=== PATIENT | male | born 1965 | race Caucasian/White ===

== ENCOUNTER 2019-08-22 09:06 | Emergency (ER) | payer BC, MEDICAID ==
[2019-08-22 09:30] VITALS: BP 133/97; PULSE 126
--- NOTE | 2019-08-22 09:32 | EDM.PDOC ---
ED HPI GENERAL MEDICAL PROBLEM - General Chief Complaint: Abdominal Pain Stated Complaint: LOWER STOMACH PAIN Time Seen by Provider: 08/22/19 09:21 Source of Information: Reports: Patient History Limitations: Reports: No Limitations - History of Present Illness INITIAL COMMENTS - FREE TEXT/NARRATIVE: This started four days ago with abdominal pain. Diarrhea started right away. The diarrhea right away was liquid and yellow and has continued to be. He has not really been nauseated or vomiting. He has been drinking a lot nolberto water but has not eaten anything since this started. He has not noted fever or chills. He has had problems sleeping as he is so uncomfortable. he has been drinking milk also. He has had about half a gallon in past two days. He denies any burning or heartburn. He has been drinking a lot of water and has urinating frequently. He has trouble starting the urine as he has pain in the suprapubic area. he presses on belly to urinate. The pain has not changed location and does not radiate. He has not been traveling anywhere in past month. He was working at the [employer] but has not worked since last Friday. They let him go due to illness. 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 This is an assisted living place. He did clean up a lot of poop and briefs, etc. He denies burning on urination. He had a similar problem within past year and was treated with some pills. 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: Other (see below) Lower Abdomen Pain Score (Numeric/FACES): 10 - Related Data Allergies Allergy/AdvReac Type Severity Reaction Status Date / Time No Known Allergies Allergy Verified 08/22/19 09:30 Home Meds: Home Meds Ciprofloxacin/Ciprofloxa HCl [Cipro Xr 500 mg Tablet] 500 mg PO BID #20 tbmp.24hr 08/22/19 [Rx] Tamsulosin [Tamsulosin 24 Hr] 0.4 mg PO DAILY 30 Days #30 cap.er 08/22/19 [Rx] Past Medical History - Past Health History Medical/Surgical History: Denies Medical/Surgical History Psychiatric History: Reports: Addiction, Anxiety, Depression Social & Family History - Tobacco Use Smoking Status *Q: Current Every Day Smoker Tobacco Use Within Last Twelve Months: Cigarettes Years of Tobacco use: 30 Smoking Cessation Information Provided To Patient: Yes ED ROS GENERAL - Review of Systems Review Of Systems: ROS reveals no pertinent complaints other than HPI. ED EXAM, GI/ABD - Physical Exam Exam: See Below Exam Limited By: No Limitations General Appearance: Alert, WD/WN, Anxious Eyes: Bilateral: Normal Appearance Ears: Normal External Exam, Normal Canal, Normal TMs Nose: Normal Inspection Throat/Mouth: Other (Throat erythematous; without tonsilar hypertrophy or exudate) Head: Atraumatic, Normocephalic Neck: Normal Inspection, Supple Respiratory/Chest: No Respiratory Distress, Lungs Clear, Normal Breath Sounds Cardiovascular: Regular Rate, Rhythm, No Edema, No JVD, No Murmur GI/Abdominal Exam: Normal Bowel Sounds, Distended, Guarding, Tender, Other ( Abdomen mildly distended lower abdomen: states pain is in suprapubic area. C/O pain to palpation of midepigastric area as well as lower abdomen both right and left quadrants.) (Male) Exam: Normal Inspection, Circumcised. No: Penile Lesions, Scrotal Swelling Rectal (Males) Exam: Normal Rectal Tone, BPH Back Exam: Full Range of Motion. No: CVA Tenderness (L), CVA Tenderness (R) Extremities: Normal Inspection, Normal Range of Motion, No Pedal Edema, Normal Capillary Refill Neurological: Alert, Oriented, CN II-XII Intact, Normal Cognition, Normal Gait Psychiatric: Anxious Skin Exam: Warm, Dry, Intact, Normal Color, No Rash Lymphatic: No Adenopathy Course - Vital Signs Text/Narrative:: After patient arrived he was anxious and restless; he was up to bathroom to void and would have tiny amount of stool. Voiding was approx 50 cc each time. He states that he has been drinking a large amount of fluids as he was afraid he would get dehydrated. CT of abdomen/pelvis showed very large bladder and so Gallegos was placed. 2200 ccs of pale urine drained within 10 minutes. Prostate exam revealed firm, tender prostate that was mildly enlarged. I calledord Urologist button cutter Dr. Atkinson. He advised followup with Urology to do cystoscopy and treat prostate. He suggested starting on CIpro and Flomax. Pt tolerated Gallegos placement. He was instructed regarding the catheter Last Recorded V/S: Last Vital Signs Temp 99.2 F 08/22/19 09:10 Pulse 126 H 08/22/19 09:10 Resp 16 08/22/19 09:10 BP 133/97 H 08/22/19 09:10 Pulse Ox 96 08/22/19 09:10 - Orders/Labs/Meds Orders: Active Orders 24 hr Category Date Time Status Gallegos Catheter Insertion [Insert Urinary Catheter] [OM. Care 08/22/19 11:15 Ordered PC] Q24H Urinary Catheter Assessment [RC] ASDIRECTED Care 08/22/19 11:04 Active CLOSTRIDIUM DIFFICILE TOX RFLX [MREF] Stat Lab 08/22/19 09:59 Ordered STOOL CULTURE [MREF] Stat Lab 08/22/19 09:59 Ordered Isolation [COMM] Stat Oth 08/22/19 10:02 Ordered Saline Lock Insert [OM.PC] Routine Oth 08/22/19 09:38 Ordered Labs: Laboratory Tests 08/22/19 08/22/19 08/22/19 Range/Units 09:10 09:50 09:50 WBC 11.3 H (4.0-10.0) x10^3/uL RBC 4.60 (4.5-6.0) x10^6/uL Hgb 13.6 L (14.0-18.0) g/dL Hct 37.5 L (40.0-52.0) % MCV 81.5 (78.0-93.0) fL MCH 29.6 (26.0-32.0) pg MCHC 36.3 H (32.0-36.0) g/dL RDW Coeff of Heriberto 13.8 (10.0-15.0) % Plt Count 218 (130-400) x10^3/uL Neut % (Auto) 82.0 H (50.0-80.0) % Lymph % (Auto) 10.3 L (25.0-50.0) % Todd % (Auto) 7.0 (2.0-11.0) % Eos % (Auto) 0.5 (0.0-4.0) % Baso % (Auto) 0.2 (0.2-1.2) % Sodium 136 (69-191) mmol/L Potassium 4.0 (1.5-9.9) mmol/L Chloride 96 L (54-184) mmol/L Carbon Dioxide 26 (21-32) mmol/L Anion Gap 18.0 (10-20) mmol/L BUN 13 (7-18) mg/dL Creatinine 0.8 (0.70-1.30) mg/dL Est Cr Clr Drug Dosing 98.20 mL/min Estimated GFR (MDRD) > 60 Glucose 119 H (74-106) mg/dL Calcium 9.2 (8.5-10.1) mg/dL Corrected Calcium 9.04 (8.5-10.1) mg/dL Total Bilirubin 0.9 (0.2-1.0) mg/dL AST 174 H (15-37) U/L ALT 114 H (16-63) U/L Alkaline Phosphatase 84 (46-116) U/L C-Reactive Protein < 0.2 (<=0.9) mg/dL Total Protein 7.3 (6.4-8.2) g/dL Albumin 4.2 (3.4-5.0) g/dL Globulin 3.1 Albumin/Globulin Ratio 1.35 Lipase 327 (73-393) U/L Urine Color Yellow (YELLOW) Urine Appearance Slightly cloudy H (CLEAR) Urine pH 6.5 (5.0-8.0) Ur Specific [place] <=1.005 Urine Protein Trace H (NEGATIVE) mg/dL Urine Glucose (UA) Negative (NEGATIVE) mg/dL Urine Ketones Negative (NEGATIVE) mg/dL Urine Occult Blood Moderate H (NEGATIVE) Urine Nitrite Negative (NEGATIVE) Urine Bilirubin Negative (NEGATIVE) Urine Urobilinogen 0.2 (0.2) EU/dL Ur Leukocyte Esterase Negative (NEGATIVE) Urine RBC 5-10 H (NOT SEEN) /HPF Urine WBC 0-5 (NOT SEEN) /HPF Ur Squamous Epith Cells Not seen (NEGATIVE) /HPF Urine Bacteria Rare (NEGATIVE) /HPF Urine Mucus Few H (NEGATIVE) /LPF Meds: Medications Discontinued Medications Generic Name Dose Route Start Last Admin Trade Name Freq PRN Reason Stop Dose Admin Ciprofloxacin 500 mg 08/22/19 12:30 08/22/19 12:38 Ciprofloxacin Hcl PO 08/22/19 12:31 500 mg ONETIME ONE Administration Fentanyl 50 mcg 08/22/19 09:46 08/22/19 12:38 Sublimaze IVPUSH 08/22/19 09:47 Not Given ONETIME ONE Iopamidol 100 ml 08/22/19 10:21 08/22/19 10:38 Isovue-300 (61%) IVPUSH 08/22/19 10:22 100 ml ONETIME ONE Administration Lorazepam 1 mg 08/22/19 09:58 08/22/19 10:08 Ativan IVPUSH 08/22/19 09:59 1 mg STAT ONE Administration Sodium Chloride 10 ml 08/22/19 09:38 Saline Flush FLUSH ASDIRECTED PRN Keep Vein Open Tamsulosin HCl 0.4 mg 08/22/19 12:33 08/22/19 12:38 Flomax PO 08/22/19 12:34 0.4 mg ONETIME ONE Administration - Re-Assessments/Exams Free Text/Narrative Re-Assessment/Exam: 08/22/19 13:57 His lower abdomen was less distended after Gallegos inserted. He verbalized decrease in his pain and pressure Departure - Departure Time of Disposition: 12:30 Disposition: Home, Self-Care 01 Condition: Good Clinical Impression: Prostatitis syndrome, Hydronephrosis due to obstruction of bladder Abdominal pain Qualifiers: Abdominal location: lower abdomen, unspecified Qualified Code(s): R10.30 - Lower abdominal pain, unspecified Diarrhea Qualifiers: Diarrhea type: functional diarrhea Qualified Code(s): K59.1 - Functional diarrhea - Discharge Information *PRESCRIPTION DRUG MONITORING PROGRAM REVIEWED*: Not Applicable *COPY OF PRESCRIPTION DRUG MONITORING REPORT IN PATIENT INO: Not Applicable Prescriptions: Ciprofloxacin/Ciprofloxa HCl [Cipro Xr 500 mg Tablet] 500 mg PO BID #20 tbmp.24hr Tamsulosin [Tamsulosin 24 Hr] 0.4 mg PO DAILY 30 Days #30 cap.er Instructions: Indwelling Urinary Catheter Care, Adult, Prostatitis, Acute Urinary Retention, Male Referrals: PCP,None [Primary Care Provider] - Forms: ED Department Discharge Additional Instructions: Make follow up appointment with Urologist, Call in morning. You have an indwelling catheter to empty your bladder. Drink normal amounts of fluids Take Flomax 1 tablet daily. Take 1/2 hour after supper daily. Take Cipro 500 mg po bid for 10 days. Make sure you appointment with urology is before this is gone. Take all of your medication even if you are feeling better. Catheter cares were given by CORTEZ Pereyra. Please follow these instructions. ED Communication - Discussed Case With (1) Discussed Case With (1): Radiologist, Other Provider Person/s Notified (1): Dr. Keller (Discussion of CT report) Person/s Notified (2): Dr. Manrique (Regarding recommendations for followup and treatment) - Problem List Review Problem List Initiated/Reviewed/Updated: Yes - My Orders Last 24 Hours: My Active Orders 08/22/19 09:38 Saline Lock Insert [OM.PC] Routine 08/22/19 09:59 CLOSTRIDIUM DIFFICILE TOX RFLX [MREF] Stat STOOL CULTURE [MREF] Stat 08/22/19 10:02 Isolation [COMM] Stat 08/22/19 11:04 Urinary Catheter Assessment [RC] ASDIRECTED 08/22/19 11:15 Gallegos Catheter Insertion [Insert Urinary Catheter] [OM.PC] Q24H - Assessment/Plan Last 24 Hours: My Active Orders 08/22/19 09:38 Saline Lock Insert [OM.PC] Routine 08/22/19 09:59 CLOSTRIDIUM DIFFICILE TOX RFLX [MREF] Stat STOOL CULTURE [MREF] Stat 08/22/19 10:02 Isolation [COMM] Stat 08/22/19 11:04 Urinary Catheter Assessment [RC] ASDIRECTED 08/22/19 11:15 Gallegos Catheter Insertion [Insert Urinary Catheter] [OM.PC] Q24H Assessment:: 1. Acute abdominal/pelvic pain 2 2. Acute Urinary Retention 3. Prostatitis 4 Diarrhea, likely secondary to bladder distention . Plan: 1. Gallegos catheter was placed. Over 2000 cc urine was returned 2. He was placed on Cipro 500 mg po bid for acute prostatitis 3. He was given Flomax daily po for urinary issues. 4. Reviewed past medical record and he was seen in March for dysuria also 5. His liver enzymes should be rechecked 6. Consider SIADH or DI or psychological reasons for polydypsia and extreme polyuria. Today he states he is intentionally drinking so much water due to fear of dehydration 7. He was referred to [facility] as he was last to see pt.
[2019-08-22] MEDS ORDERED: Sodium Chloride 0.9% 10 ML Syringe FLUSH PRN (09:38)
[2019-08-22] MEDS ORDERED: fentaNYL 100 MCG/2 ML SDV IVPUSH ONE (09:46)
[2019-08-22] MEDS ORDERED: LORazepam 2 MG/ML SDV IVPUSH ONE (09:58)
[2019-08-22 10:18] LABS: CHLORIDE,CL 96 mmol/L (54-184); SODIUM,NA 136 mmol/L (69-191)
[2019-08-22] MEDS ORDERED: Iopamidol 612 MG/ML 100 ML Bottle IVPUSH ONE (10:21)
[2019-08-22] MEDS ORDERED: Ciprofloxacin 500 MG Tab PO ONE (12:30)
[2019-08-22] MEDS ORDERED: Tamsulosin 0.4 MG Cap.ER PO ONE (12:33)
--- NOTE | 2019-08-22 13:05 | CT ---
[id number] CT/CT Abdomen Pelvis W IV EXAM: Abdomen and pelvis CT with contrast INDICATION: ABDOMINAL PAIN COMPARISON: None. FINDINGS: The prostate is moderately enlarged. There is significant urinary retention with a moderate to markedly distended urinary bladder and moderate associated hydroureteronephrosis. The liver is prominent in size and demonstrates at least moderate fatty infiltration. There are few scattered colonic diverticula without evidence of diverticulitis. The pancreas, spleen, adrenal glands, small bowel and the appendix are normal in appearance. No adenopathy, free air free fluid. The osseous structures are unremarkable. IMPRESSION: 1. Significant urinary retention with moderate associated bilateral urinary collecting system dilation and moderate to marked urinary bladder distention. Grabiel Morales MD 08/22/19 [id number] Thank you for allowing us to participate in the care of your patient.
== END 2019-08-22 12:30 | disposition home or self-care (01) ==
LOC: VM.ED 09:06
DX: K59.1 Functional diarrhea (principal); N41.9 Inflammatory disease of prostate, unspecified; N13.30 Unspecified hydronephrosis; N32.9 Bladder disorder, unspecified; F17.210 Nicotine dependence, cigarettes, uncomplicated
CPT/HCPCS: 36415; 51702; 74160; 80053; 81001; 83690; 85025; 86140; 87086; 96374; 99284-25; 99284-GF; A9270-GY; J2060; Q9967

== ENCOUNTER 2019-08-23 11:18 | Emergency (ER) | payer MEDICAID ==
[2019-08-23 11:45] VITALS: BP 135/93; PULSE 110
--- NOTE | 2019-08-23 13:43 | EDM.PDOC ---
ED HPI GENERAL MEDICAL PROBLEM - General Chief Complaint: Genitourinary Problem Stated Complaint: CATHETER LEAKING Time Seen by Provider: 08/23/19 11:20 Source of Information: Reports: Patient History Limitations: Reports: No Limitations - History of Present Illness INITIAL COMMENTS - FREE TEXT/NARRATIVE: Pt. was seen in ER with urinary retention and was diagnosed with prostatitis. He was started on Cipro and flomax. Gallegos catheter was placed and attached to a leg bag. Patient reports that he has noticed that the catheter or bag are leaking somewhere. He states that he had been afebrile. Denies any chills or weakness. He was informed to follow-up to set up a urology appointment but states that he does not have a PCP to place a referral. Pt. denies any abdominal pain. He states that the catheter has been draining urine without difficulty. No hematuria or other complications. Onset Date: 08/23/19 pelvic Pain Score (Numeric/FACES): 7 - Related Data Allergies Allergy/AdvReac Type Severity Reaction Status Date / Time No Known Allergies Allergy Verified 08/23/19 11:45 Home Meds: Home Meds Ciprofloxacin/Ciprofloxa HCl [Cipro Xr 500 mg Tablet] 500 mg PO BID #20 tbmp.24hr 08/22/19 [Rx] Tamsulosin [Tamsulosin 24 Hr] 0.4 mg PO DAILY 30 Days #30 cap.er 08/22/19 [Rx] Past Medical History - Past Health History Medical/Surgical History: Denies Medical/Surgical History Psychiatric History: Reports: Addiction, Anxiety, Depression Social & Family History - Tobacco Use Smoking Status *Q: Current Every Day Smoker Years of Tobacco use: 30 Packs/Tins Daily: 1.5 Used Tobacco, but Quit: No ED ROS GENERAL - Review of Systems Review Of Systems: ROS reveals no pertinent complaints other than HPI. ED EXAM, GENERAL - Physical Exam Exam: See Below GI/Abdominal: Normal Bowel Sounds, Soft, Non-Tender, No Organomegaly, No Distention, No Abnormal Bruit, No Mass (Male) Exam: Normal Inspection, Circumcised. No: Penile Lesions, Scrotal Swelling, Urethral Discharge Back Exam: Normal Inspection, Full Range of Motion Extremities: Normal Inspection, Normal Range of Motion, Non-Tender, No Pedal Edema, Normal Capillary Refill Neurological: Alert, Oriented, CN II-XII Intact, Normal Cognition, No Motor/ Sensory Deficits Psychiatric: Normal Affect, Normal Mood Course - Vital Signs Last Recorded V/S: Last Vital Signs Temp 36.8 C 08/23/19 11:41 Pulse 110 H 08/23/19 11:41 Resp 16 08/23/19 11:41 BP 135/93 H 08/23/19 11:41 Pulse Ox 97 08/23/19 11:41 Departure - Departure Time of Disposition: 10:30 Disposition: Home, Self-Care 01 Clinical Impression: Prostatitis, Gallegos catheter problem - Discharge Information Instructions: Prostatitis, [id number] Referrals: PCP,None [Primary Care Provider] - Forms: ED Department Discharge Additional Instructions: Continue with current medications. Urology will be in contact with you to set up a referral. - Assessment/Plan Plan: Leg back was replaced. No recurrent leaking noted. Referral was faxed to [facility]. They will contact the patient to set up an appointment.
== END 2019-08-23 11:53 | disposition home or self-care (01) ==
LOC: VM.ED 11:18
DX: T83.031A Leakage of indwelling urethral catheter, initial encounter (principal); N41.9 Inflammatory disease of prostate, unspecified; F17.210 Nicotine dependence, cigarettes, uncomplicated
CPT/HCPCS: 99283; 99283-GF

== ENCOUNTER 2019-08-31 19:29 | Emergency (ER) | payer MEDICAID ==
--- NOTE | 2019-08-31 20:45 | EDM.PDOC ---
ED HPI GENERAL MEDICAL PROBLEM - General Stated Complaint: CATHETOR ISSUE Time Seen by Provider: 08/31/19 20:37 - History of Present Illness INITIAL COMMENTS - FREE TEXT/NARRATIVE: Mario is a 53 y/o male who presents to the ER with complaints of being unable to self cath. He was seen today by [facility] and instructed on self cathing, but he not able to do it once he got home. He did have a joyce in for 9 days and requests placement of the joyce. He was advised that he has an enlarged prostate and needs to have surgery, but he is unable to do it for a couple weeks due to a new job and new apt. He attempted to cath at home, but cannot do it. - Related Data Allergies Allergy/AdvReac Type Severity Reaction Status Date / Time No Known Allergies Allergy Verified 08/23/19 11:45 Home Meds: Home Meds Ciprofloxacin/Ciprofloxa HCl [Cipro Xr 500 mg Tablet] 500 mg PO BID #20 tbmp.24hr 08/22/19 [Rx] Tamsulosin [Tamsulosin 24 Hr] 0.4 mg PO DAILY 30 Days #30 cap.er 08/22/19 [Rx] Past Medical History - Past Health History Medical/Surgical History: Denies Medical/Surgical History Genitourinary History: Reports: Prostate Disorder, Retention, Urinary Psychiatric History: Reports: Addiction, Anxiety, Depression Review of Systems - Review of Systems Review Of Systems: See Below Constitutional: Reports: No Symptoms Eyes: Reports: No Symptoms Ears: Reports: No Symptoms Nose: Reports: No Symptoms Mouth/Throat: Reports: No Symptoms Respiratory: Reports: No Symptoms Cardiovascular: Reports: No Symptoms GI/Abdominal: Reports: No Symptoms Genitourinary: Reports: Dysuria Musculoskeletal: Reports: No Symptoms Skin: Reports: No Symptoms Neurological: Reports: No Symptoms Psychiatric: Reports: No Symptoms ED EXAM, GENERAL - Physical Exam Exam: See Below Exam Limited By: No Limitations General Appearance: Alert, No Apparent Distress, Other (adult male) Head: Atraumatic, Normocephalic Respiratory/Chest: No Respiratory Distress GI/Abdominal: Soft, Non-Tender (Male) Exam: No Hernia, Normal Inspection Rectal (Males) Exam: Deferred Extremities: Normal Inspection, Normal Capillary Refill Neurological: Alert, Oriented, CN II-XII Intact Psychiatric: Normal Affect, Normal Mood Skin Exam: Warm, Dry, Intact, Normal Color Course - Vital Signs Text/Narrative:: The patient was seen on arrival by the [facility]. RN performed bladder scan and patient found to have about 525 ml of urine in bladder. Discussed patient's situation and he desires joyce be replaced. Joyce inserted by RN. He was given discharge instructions and sent home in stable condition. Departure - Departure Time of Disposition: 21:00 Disposition: Home, Self-Care 01 Condition: Good Clinical Impression: Acute urinary retention, Enlarged prostate - Discharge Information *PRESCRIPTION DRUG MONITORING PROGRAM REVIEWED*: Not Applicable *COPY OF PRESCRIPTION DRUG MONITORING REPORT IN PATIENT INO: Not Applicable Instructions: Benign Prostatic Hyperplasia, Acute Urinary Retention, Male Referrals: PCP,Unknown [Primary Care Provider] - Additional Instructions: -Call [facility] tomorrow and advise them you came to the ER here in [place] for joyce replacement -Joyce care reviewed with patient. Leg bag sent for day use. -Return to the ER with any concerns.
[2019-08-31 22:58] VITALS: BP 140/86; PULSE 82
== END 2019-08-31 21:15 | disposition home or self-care (01) ==
LOC: VM.ED 19:29
DX: N40.1 Benign prostatic hyperplasia with lower urinary tract symptoms (principal); R33.8 Other retention of urine
CPT/HCPCS: 51702; 51798; 99283; 99283-GF

== ENCOUNTER 2020-04-24 12:34 | Emergency (ER) | payer BC, MEDICAID, OTHER ==
[2020-04-24 12:43] VITALS: BP 153/88; PULSE 125
--- NOTE | 2020-04-24 19:02 | EDM.PDOC ---
ED HPI GENERAL MEDICAL PROBLEM - General Stated Complaint: INTOXICATED Time Seen by Provider: 04/24/20 12:35 Source of Information: Reports: Patient History Limitations: Reports: No Limitations - History of Present Illness INITIAL COMMENTS - FREE TEXT/NARRATIVE: Pt. presents to ER transported via [facility]. Pt. was picked up for public intoxication and has to be cleared to be taken to detox at the [facility]. Pt. denies any trauma and offers no complaint. Denies any falls. No street drug use. Pt. states that he drinks regularly. Denies any headache. No fever or chills. No chest pain or shortness of breath. Onset: Today Onset Date: 04/24/20 - Related Data Allergies Allergy/AdvReac Type Severity Reaction Status Date / Time No Known Allergies Allergy Verified 08/31/19 22:57 Home Meds: Home Meds Tamsulosin [Tamsulosin 24 Hr] 0.4 mg PO DAILY 30 Days #30 cap.er 08/22/19 [Rx] Past Medical History - Past Health History Medical/Surgical History: Denies Medical/Surgical History Genitourinary History: Reports: Prostate Disorder, Retention, Urinary Psychiatric History: Reports: Addiction, Anxiety, Depression - Past Surgical History Other Male Surgeries/Procedures: cystoscopy ED ROS GENERAL - Review of Systems Review Of Systems: See Below Constitutional: Reports: No Symptoms HEENT: Reports: No Symptoms Respiratory: Reports: No Symptoms Cardiovascular: Reports: No Symptoms Endocrine: Reports: No Symptoms GI/Abdominal: Reports: No Symptoms : Reports: No Symptoms Musculoskeletal: Reports: No Symptoms Skin: Reports: No Symptoms Neurological: Reports: No Symptoms Psychiatric: Reports: No Symptoms Hematologic/Lymphatic: Reports: No Symptoms Immunologic: Reports: No Symptoms ED EXAM, GENERAL - Physical Exam Exam: See Below Exam Limited By: No Limitations General Appearance: Alert, WD/WN, No Apparent Distress Eye Exam: Bilateral Eye: EOMI, PERRL Respiratory/Chest: No Respiratory Distress, Lungs Clear, Normal Breath Sounds, No Accessory Muscle Use, Chest Non-Tender Cardiovascular: Normal Peripheral Pulses, Regular Rate, Rhythm, No Edema, No Gallop, No JVD, No Murmur, No Rub Peripheral Pulses: 4+: Radial (L) GI/Abdominal: Soft, Non-Tender, No Distention, No Mass (Male) Exam: Deferred Rectal (Males) Exam: Deferred Back Exam: Normal Inspection, Full Range of Motion Extremities: Normal Inspection, Normal Range of Motion, Non-Tender, No Pedal Edema, Normal Capillary Refill Neurological: Alert, Oriented, CN II-XII Intact, Normal Cognition, Normal Gait, Normal Reflexes, No Motor/Sensory Deficits Psychiatric: Normal Affect, Normal Mood Skin Exam: Warm, Dry, Intact, Normal Color, No Rash Lymphatic: No Adenopathy Course - Vital Signs Last Recorded V/S: Last Vital Signs Temp 37.5 C 04/24/20 12:35 Pulse 125 H 04/24/20 12:35 Resp 18 04/24/20 12:35 BP 153/88 H 04/24/20 12:35 Pulse Ox 93 L 04/24/20 12:35 Departure - Departure Time of Disposition: 13:00 Disposition: Home, Self-Care 01 Clinical Impression: Medical clearance for incarceration - Discharge Information Referrals: PCP,None [Primary Care Provider] - Sepsis Event Note (ED) - Evaluation Sepsis Screening Result: No Definite Risk - Focused Exam Vital Signs: Vital Signs Temp Pulse Resp BP Pulse Ox 04/24/20 12:35 37.5 C 125 H 18 153/88 H 93 L - Problem List Review Problem List Initiated/Reviewed/Updated: Yes - Assessment/Plan Plan: Pt. is cleared for incarceration. He is alert and oriented and able to answer all questions. Follow-up in clinic as needed.
== END 2020-04-24 12:40 | disposition home or self-care (01) ==
LOC: VM.ED 12:34
DX: Z02.89 Encounter for other administrative examinations (principal); Z79.899 Other long term (current) drug therapy
CPT/HCPCS: 99283; 99283-GF

== ENCOUNTER 2022-09-15 16:29 | Emergency (ER) | payer MEDICAID ==
[2022-09-15 17:37] VITALS: BP 149/79; PULSE 66
[2022-09-15] MEDS ORDERED: Take Home: Acetaminophen/Codeine 300 MG/30 MG, 5 Tab Pack PO ONE (18:06)
[2022-09-15] MEDS ORDERED: Take Home: Amoxicillin/Clavulanate K 875-125 MG Tab, 2 Tab Pack PO ONE (18:06)
== END 2022-09-15 18:30 | disposition home or self-care (01) ==
LOC: VM.ED 16:29
DX: K08.89 Other specified disorders of teeth and supporting structures (principal); Z72.0 Tobacco use
CPT/HCPCS: 99282; A9270

== ENCOUNTER 2023-11-16 10:00 | Emergency (ER) | payer MEDICAID ==
[2023-11-16 10:21] VITALS: PULSE 74
[2023-11-16 11:06] LABS: CORONAVIRUS COVID-19 NAA NEGATIVE (NEGATIVE); INFLUENZA A NAA NEGATIVE (NEGATIVE); INFLUENZA B NAA NEGATIVE (NEGATIVE); RESPIRATORY SYNCYTIAL VIR NAA NEGATIVE (NEGATIVE)
[2023-11-16 11:24] VITALS: BP 144/71
== END 2023-11-16 11:16 | disposition home or self-care (01) ==
LOC: VM.ED 10:00
DX: U07.1 COVID-19 (principal); F17.210 Nicotine dependence, cigarettes, uncomplicated
CPT/HCPCS: 0241U; 99283